=== PATIENT | female | born 1930 | race Caucasian/White ===

== ENCOUNTER 2017-10-11 07:10 | Emergency (ER) | payer OTHER ==
[~2017-10-11] VITALS: Ht 157.5 cm; Wt 77.1 kg
[~2017-10-11 07:10] MED LIST: ADULT LOW DOSE81 MG PO; ALTOPREV20 M1 PO; ALTOPREV20 MG PO; CIPRO500 MG PO; CIPROFLOXACIN500 M3 PO; CLARITIN10 MG PO; DIAZEPAM 2MG TAB2 MG OR; DIAZEPAM 2MG TAB2 MG PO; FLAGYL500 MG PO; LEVAQUIN 500 M500 M1 PO; LEVOTHYROXINE0.05 MG PO; MIRALAX255 GM PO; MOTION RELIEF25 MG PO; MULTIVITAMIN W1 EAC5 PO; MULTIVITAMINS1 EAC7 PO; NORCO 5-325 TA1 EACH PO; OCUVITE PRESER1 EACH; OCUVITE PRESER1 EACH PO; OCUVITE TABLET1 EAC1 PO; PRILOSEC 20 MG20 MG PO; REQUIP 1 MG TABL1 M1 PO; REQUIP XL2 MG PO; RESTORIL15 MG PO; RESTORIL7.5 MG PO; ROPINIROLE HCL2 M1 PO; TEMAZEPAM PO; ULTRAM 50MG TAB50 MG PO; ZESTRIL20 MG PO; ZOFRAN4 MG PO
[2017-10-11] MEDS ORDERED: VALIUM5 MG PO (07:29)
[2017-10-11] MEDS ORDERED: OMEPRAZOLE 20 M20 M1 PO (07:29)
[2017-10-11 07:34] LABS: URINE BILIRUBIN NEGATIVE (Negative); URINE BLOOD 3+ (Negative); URINE CLARITY CLEAR; URINE COLOR YELLOW; URINE GLUCOSE-RANDOM NEGATIVE (Negative); URINE KETONES NEGATIVE (Negative); URINE LEUKOCYTES-REFLEX NEGATIVE (Negative); URINE NITRITE-REFLEX NEGATIVE (Negative); URINE PROTEIN NEGATIVE (Negative); URINE UROBILINOGEN 0.2 E.U./dl (0.2-1.0)
[2017-10-11 07:44] LABS: BACTERIA-REFLEX None Seen /HPF (None Seen); CASTS None Seen /LPF (None Seen); CRYSTALS None Seen /LPF (None Seen); MUCUS None Seen strn/LPF (None Seen); SQUAMOUS 4-10 Moderate /LPF (0-3); URINE RBC 3-10 Few /HPF (0-2); URINE WBC-REFLEX 0-5 Rare /HPF (0-5)
[2017-10-11 07:49] LABS: ABSOLUTE EOSINOPHILS 0.2 thou/uL (0.0-0.7); ABSOLUTE LYMPHOCYTES 1.9 thou/uL (0.8-5.3); ABSOLUTE MONOCYTES 0.7 thou/uL (0.0-1.2); ABSOLUTE NEUTROPHILS 4.7 thou/uL (1.6-8.1); BASOPHILS 0.6 %; EOSINOPHILS 2.4 %; HEMATOCRIT 43.4 % (37.0-47.0); HEMOGLOBIN 14.3 gm/dL (12.0-15.0); LYMPHOCYTES 25.9 %; MCH 32.4 pg (26.0-34.0); MCHC 32.9 g/dL (28.0-37.0); MCV 98.7 fL (80.0-100.0); MONOCYTES 9.1 %; MPV 7.7 fl. (7.2-11.1); NUCLEATED RBCS 0 /100WBC; PLATELET COUNT* 227 thou/uL (150-400); RBC 4.39 mil/uL (4.20-5.00); RDW-CV 13.9 % (10.5-14.5); WBC 7.5 thou/uL (4.0-11.0)
[2017-10-11 07:54] LABS: ANION GAP 6 mmol/L (7-16); BUN 24 mg/dL (7-18); CALCIUM 8.6 mg/dL (8.5-10.1); CHLORIDE 108 mmol/L (98-107); CO2 29 mmol/L (21-32); CREATININE 1.1 mg/dL (0.6-1.3); GLUCOSE 133 mg/dL (70-99); POTASSIUM 4.2 mmol/L (3.5-5.1); SODIUM 143 mmol/L (136-145)
[2017-10-11 07:56] LABS: PROTIME 10.2 Seconds (9.20-11.50)
[2017-10-11 08:01] LABS: ALBUMIN 3.5 g/dL (3.4-5.0); ALKALINE PHOSPHATASE 42 U/L (46-116); LIPASE 220 U/L (73-393); SGOT 23 U/L (15-37); SGPT 33 U/L (30-65); TOTAL BILIRUBIN 0.5 mg/dL (<0.1-1.0); TROPONIN-I LEVEL <0.06 ng/mL (<0.06)
[2017-10-11 09:15] VITALS: BP 127/69
--- NOTE | 2017-10-11 14:46 | EKG ---
[place] [address] ELECTROCARDIOGRAM REPORT Name: MARINMRAQUITA Kinza Room: 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
== END 2017-10-11 09:16 | disposition home or self-care (01) ==
LOC: M.ERS 07:10
PROVIDERS: Family Medicine
DX: R10.84 Generalized abdominal pain (principal); E78.00 Pure hypercholesterolemia, unspecified; K21.9 Gastro-esophageal reflux disease without esophagitis; I10 Essential (primary) hypertension; E78.5 Hyperlipidemia, unspecified; Z98.890 Other specified postprocedural states; Z88.8 Allergy status to other drugs, medicaments and biological substances; Z91.018 Allergy to other foods

== ENCOUNTER 2017-12-26 17:32 | Inpatient (IN) | payer OTHER ==
[~2017-12-26] VITALS: Ht 157.5 cm; Wt 83.1 kg
[~2017-12-26 17:32] MED LIST changes: +OMEPRAZOLE 20 M20 M1 PO; +VALIUM5 MG PO
[2017-12-26 17:42] VITALS: BP 158/70
[2017-12-26 18:03] LABS: URINE BILIRUBIN NEGATIVE (Negative); URINE BLOOD 2+ (Negative); URINE CLARITY CLEAR; URINE COLOR YELLOW; URINE GLUCOSE-RANDOM NEGATIVE (Negative); URINE KETONES NEGATIVE (Negative); URINE LEUKOCYTES-REFLEX NEGATIVE (Negative); URINE NITRITE-REFLEX NEGATIVE (Negative); URINE PROTEIN NEGATIVE (Negative); URINE UROBILINOGEN 0.2 E.U./dl (0.2-1.0)
[2017-12-26 18:17] LABS: ABSOLUTE EOSINOPHILS 0.2 thou/uL (0.0-0.7); ABSOLUTE LYMPHOCYTES 1.5 thou/uL (0.8-5.3); ABSOLUTE MONOCYTES 1.1 thou/uL (0.0-1.2); ABSOLUTE NEUTROPHILS 7.6 thou/uL (1.6-8.1); BASOPHILS 0.5 %; EOSINOPHILS 1.7 %; HEMATOCRIT 37.1 % (37.0-47.0); HEMOGLOBIN 12.7 gm/dL (12.0-15.0); LYMPHOCYTES 14.6 %; MCH 33.3 pg (26.0-34.0); MCHC 34.1 g/dL (28.0-37.0); MCV 97.7 fL (80.0-100.0); MONOCYTES 10.8 %; MPV 7.6 fl. (7.2-11.1); NUCLEATED RBCS 0 /100WBC; PLATELET COUNT* 229 thou/uL (150-400); POLYS 72.4 %; RDW-CV 13.7 % (10.5-14.5); WBC 10.5 thou/uL (4.0-11.0)
[2017-12-26 18:22] LABS: ANION GAP 5 mmol/L (7-16); BUN 12 mg/dL (7-18); CALCIUM 8.4 mg/dL (8.5-10.1); CHLORIDE 102 mmol/L (98-107); CO2 28 mmol/L (21-32); CREATININE 0.9 mg/dL (0.6-1.3); GLUCOSE 108 mg/dL (70-99); POTASSIUM 3.7 mmol/L (3.5-5.1); SODIUM 135 mmol/L (136-145)
[2017-12-26 18:29] LABS: ALBUMIN 3.1 g/dL (3.4-5.0); ALKALINE PHOSPHATASE 45 U/L (46-116); LIPASE 128 U/L (73-393); SGOT 23 U/L (15-37); SGPT 28 U/L (30-65); TOTAL BILIRUBIN 0.6 mg/dL (<0.1-1.0); TROPONIN-I LEVEL <0.06 ng/mL (<0.06)
[2017-12-26 18:33] LABS: SQUAMOUS 0-3 Few /LPF (0-3)
[2017-12-26 18:34] LABS: BACTERIA-REFLEX 1-9 Few /HPF (None Seen); CASTS None Seen /LPF (None Seen); CRYSTALS None Seen /LPF (None Seen); URINE RBC 0-2 Rare /HPF (0-2); URINE WBC-REFLEX 0-5 Rare /HPF (0-5)
[2017-12-26 20:18] VITALS: BP 125/58
[2017-12-26 20:40] VITALS: BP 138/64
[2017-12-26] MEDS ORDERED: ROPINIROLE HCL2 MG PO (20:51)
[2017-12-26] MEDS ORDERED: ROPINIROLE HCL3 MG PO (20:52)
[2017-12-26 21:21] VITALS: BP 138/64
[2017-12-26 21:50] VITALS: BP 119/68
[2017-12-26 22:51] LABS: CHOLESTEROL 148 mg/dL (<200); HDL CHOLESTEROL 46 mg/dL (>40); LDL CHOLESTEROL 90 mg/dL (<100); TC:HDL 3.2 Ratio (Not establshd); TRIGLYCERIDE 60 mg/dL (<150); VLDL 12 mg/dL (<40)
[2017-12-26 22:52] LABS: SERUM ASSESSMENT CLEAR
[2017-12-27] VITALS (23 sets, daily range): BP systolic 57–146; BP diastolic 28–73
[2017-12-27 05:13] LABS: HEMATOCRIT 38.5 % (37.0-47.0); HEMOGLOBIN 12.8 gm/dL (12.0-15.0); MCH 32.9 pg (26.0-34.0); MCHC 33.3 g/dL (28.0-37.0); MCV 98.9 fL (80.0-100.0); MPV 7.6 fl. (7.2-11.1); RBC 3.89 mil/uL (4.20-5.00); RDW-CV 13.8 % (10.5-14.5); WBC 13.7 thou/uL (4.0-11.0)
[2017-12-27 05:28] LABS: CALCIUM 8.1 mg/dL (8.5-10.1); MAGNESIUM 1.7 mg/dL (1.8-2.4); POTASSIUM 3.8 mmol/L (3.5-5.1)
--- NOTE | 2017-12-27 05:49 | NUR ---
RECEIVED REPORT FROM BRIEN JULIAN AT 1957. PT ARRIVED TO UNIT FROM ER AT 2009 VIA CART. IV CARDIZEM INFUSING. 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 CARDIAC CONSULT CALLED. RECEIVED CALL BACK FROM DR. CROUCH. NEW ORDERS RECEIVED AND CARRIED OUT. ALSO SPOKE WITH DR. GIBSON FOR PT C/O COUGHING. NEW ORDERS RECEIVED. AT 0100, PT C/O RIGHT ARM PAIN AND ITCHING ALL OVER. PT STATED SHE FELT LIKE SHE HAD BUGS CRAWLING ALL OVER. IV DOXYCYCLINE STOPPED, DR. GIBSON NOTIFIED AND NEW ORDERS RECEIVED. SEE EMAR FOR DOCUMENTATION. HOURLY ROUNDING COMPLETED.
--- NOTE | 2017-12-27 08:40 | NUR ---
ASSUMED PT. CARE AND RECEIVED REPORT AT 0730. PT A/OX4, VSS, MONITOR ON TRACING AFLUTTER/FIB. PT. DENIES CURRENT PAIN. ON RA @ 94%. PT. REPORTS DRY COUGH. DENIES NAUSEA. DR. CROUCH INTO SEE, OKAY FOR BREAKFAST THIS MORNING. FULL ASSESSMENT COMPLETED, REFER TO CHARTING. CARDIZEM GTT INFUSING AT 20ML/HR, TOLERATING WELL. PT AT BEDSIDE, CALL LIGHT IN REACH, WILL CONTINUE WITH PLAN OF CARE.
--- NOTE | 2017-12-27 09:52 | EKG ---
[place] [address] ELECTROCARDIOGRAM REPORT Name: MARQUITA FUNES Room: [address] ADM IN .R.#: [id number] Admission: 12/26/17 Attend Phys: Pattie Ramos Discharge: Date of : 34 Report #: [id number] THIS REPORT FOR: //name// [facility] ED Test Date: 2017-12-26 Test Time: 18:07:34 Pat Name: MARQUITA FUNES Department: Room: Gender: Camp Assistant: Jazmyne JOHNSON : 1930 Requested By: Kathryn Romero Order Number: [id number] MD: Gabe Da Silva Measurements Intervals [place] Rate: 96 P: 46 HI: 163 QRS: -8 QRSD: 79 T: 29 QT: 341 QTc: 431 Interpretive Statements Sinus rhythm Atrial premature complex Probable left atrial enlargement Compared to ECG 10/11/2017 07:33:46 Atrial premature complex(es) now present Electronically Signed On 12-27-2017 9:52:42 CDT by Gabe Da Silva [email or web address] <ELECTRONICALLY SIGNED> By: Gabe Da Silva MD, [facility] 12/27/17 0952 1807 180 Gabe Da Silva MD, [facility] /EPI
--- NOTE | 2017-12-27 09:54 | EKG ---
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
--- NOTE | 2017-12-27 10:55 | NUR ---
AT APPROX. 1045 PT. CALLED OUT AND REPORT SHE FELT CHEST PRESSURE AND UNABLE TO TAKE DEEP BREATH OR CATCH BREATH. ASSESSMENT COMPLETED INCLUDING VITALS SIGNS AT 127/59, 75, PT. PLACED ON 2L WITH RA O2 SAT. @ 91%, EKG OBTAINED SHOWING AFIB IN THE 70'S. VISUALLY NO CHANGES NOTED FROM PT. PREVIOUS ASSESSMENT. DR. GIBSON ON UNIT, UPDATED ON PT. COMPLAINTS AND SHOWN EKG.
[2017-12-27 11:49] LABS: BE 0 mmol/L (-2 to +3); HCO3 26.8 mmol/L (22.0-26.0); PCO2 VENOUS 52.5 mmHg (41.0-51.0); PO2 VENOUS 56.7 mmHg (35.0-45.0)
[2017-12-27 11:52] LABS: CALCIUM 7.7 mg/dL (8.5-10.1); CREATININE 1.2 mg/dL (0.6-1.3); MAGNESIUM 1.7 mg/dL (1.8-2.4); POTASSIUM 3.7 mmol/L (3.5-5.1)
--- NOTE | 2017-12-27 12:12 | NUR ---
PATIENT TRANSFERED TO ICU BY BED TO ROOM 2 WITH NURSING STAFF. REPORT RECEIVED FROM KAYCE TESFAYE. ALL QUESTIONS ANSWERED. PATIENT RECEIVING FLUIDS AND LEVO GTT, ABLE TO ALREADY START WEANING DOWN. PATIENT MORE ALERT AND APPROPRIATE. BANDAY AT BEDSIDE. PROGRAM PROPOSALS COORDINATOR IN PLACE, CALL LIGHT IN REACH, BED IN LOWEST POSTION.
--- NOTE | 2017-12-27 12:15 | NUR ---
AT APPROX. 1110 DR. GIBSON INTO SEE PT. PT. C/O OF NOT FEELING WELL AGAIN. BLOOD PRESSURE OBTAINED BY FIRST CRUSHER SHOWING 73/39, HEART RATE 68. RAPID RESPONSE TEAM INITIATED. GAVE VERBAL ORDER TO START IVF'S WIDE OPEN X2 BAGS, SOLUMEDROL 125 IV PUSH, AND LEVOPHED GTT AT 15MCGS/HR. PT. PRESSURES REMAINED SOFT DURING EDUCATIONAL INSTITUTION CURATOR. PT. TRANSFERED TO ICU FOR CLOSER MONITORING. REPORT GIVEN TO TENZIN TESFAYE AT BEDSIDE. PT. UPDATED ON CURRENT CONDITION AND PLAN OF CARE.
--- NOTE | 2017-12-27 15:17 | NUR ---
LEVOPHED HAS BEEN OFF SINCE 1300. PATIENT TOLERATING WELL.
--- NOTE | 2017-12-27 15:18 | EKG ---
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
--- NOTE | 2017-12-27 16:16 | 2DMMODE ---
[place] [address] 2 D/M-MODE ECHOCARDIOGRAM Name: MARQUITA FUNES Room: [address] IN [facility]#: [id number] Admission: 12/26/17 Attend Phys: Mackenzie Mars Discharge: Date of : 34 Date of Service: 12/27/17 1615 Report #: [id number] THIS REPORT FOR: //name// APPROVED REPORT Study performed: 12/27/2017 14:10:24 EXAM: Comprehensive 2D, Doppler, and color-flow Echocardiogram Patient Location: In-Patient Room #: [facility] Status: routine BSA: 1.92 HR: 69 bpm BP: 112/56 mmHg Rhythm: NSR Other Information Study Quality: Good Indications Atrial Fibrillation 2D Dimensions LVEF(%): 67.42 (>50%) IVSd: 8.65 (7-11mm) LVOT Diam: 18.33 (18-24mm) LVDd: 42.75 mm PWd: 10.02 (7-11mm) Ascending Ao: 28.51 (22-36mm) LVDs: 26.87 (25-40mm) Aortic Root: 30.05 mm Negro's LVEF: 67.42 % Volumes Left Atrial Volume (Systole) LA ESV Index: 25.60 mL/m2 Aortic Valve AoV Peak Jaime.: 1.78 m/s AO Peak Gr.: 12.74 mmHg LVOT Max P.13 mmHg AO Mean Gr.: 6.86 mmHg LVOT Mean P.37 mmHg LVOT Max V: 1.13 m/s AO V2 VTI: 34.99 cm LVOT Mean V: 0.70 m/s JARRET (VTI): 1.71 cm2 LVOT V1 VTI: 22.72 cm Mitral Valve E/A Ratio: 2.22 [place] [address] 2 D/M-MODE ECHOCARDIOGRAM Name: MARINMARQUITA Room: [address] IN .R.#: [id number] Admission: 12/26/17 Attend Phys: Mackenzie Mars Discharge: Date of : 34 Date of Service: 12/27/17 1615 Report #: [id number] MV Decel. Time: 171.97 ms MV E Max Jaime.: 1.33 m/s MV PHT: 49.87 ms MVA (PHT): 4.41 cm2 TDI E/Lateral E': 10.23 E/Medial E': 8.87 Medial E' Jaime.: 0.15 m/s Lateral E' Jaime.: 0.13 m/s Pulmonary Valve PV Peak Jaime.: 0.94 m/s PV Peak Gr.: 3.57 mmHg Tricuspid Valve TR Peak Gr.: 26.18 mmHg RVSP: 31.00 mmHg Left Ventricle The left ventricle is normal size. There is normal LV segmental wall motion. There is normal left ventricular wall thickness. Left ventricular systolic function is normal. The left ventricular ejection fraction is within the normal range. LVEF is 55-60%. The left ventricular diastolic function is normal. Right Ventricle The right ventricle is normal size. The right ventricular systolic function is normal. Atria The left atrium size is normal. The right atrium size is normal. Aortic Valve Mild aortic valve sclerosis. No aortic regurgitation is present. Mild aortic stenosis. Mitral Valve The mitral valve is normal in structure. Mild mitral annular calcification. Mild mitral regurgitation. No evidence of mitral valve stenosis. Tricuspid Valve The tricuspid valve is normal in structure. Mild tricuspid regurgitation. The RVSP is 30-35 mmHg. Pulmonic Valve The pulmonary valve is normal in structure. [place] [address] 2 D/M-MODE ECHOCARDIOGRAM Name: MARQUITA FUNES Room: [address] IN ..#: [id number] Admission: 12/26/17 Attend Phys: Mackenzie Mars Discharge: Date of : 34 Date of Service: 12/27/17 1615 Report #: [id number] valvular regurgitation. Great Vessels The aortic root is normal in size. IVC is normal in size and collapses with >50% inspiration Pericardium There is no pericardial effusion. <Conclusion> LVEF is 55-60%. Mild aortic stenosis. Mild mitral regurgitation. <ELECTRONICALLY SIGNED> By: Gabe Da Silva MD, FACC 12/27/17 1615 161 14 Gabe Da Silva MD, FACC /INF
--- NOTE | 2017-12-27 17:14 | CON ---
[address] [address] CONSULTATION Name: MARQUITA FUNES Room: [address] ADM IN M.R.#: [id number] Admission: 12/26/17 Attend Phys: Pattie Ramos Discharge: Date of : 34 Report #: [id number] THIS REPORT FOR: //name// CC: Tom Mars INDICATION: Atrial fibrillation, rapid ventricular response. HISTORY OF PRESENT ILLNESS: The patient is a very pleasant, fairly healthy 87-year-old white female with no prior cardiac history who was admitted to the hospital with primary complaints of cough and discomfort with an abdominal hernia. She was noted to be in atrial fibrillation with a rapid ventricular response rate. She reports intermittent palpitations for the last 6 months. She denies chest pain. She has dyspnea on exertion and easy fatigability, but no shortness of breath at rest. She denies chest pain. She has also been having symptoms of an upper respiratory tract infection for the last couple of days with sore throat, mild fever and cough that is nonproductive. She is without other complaint. PAST MEDICAL HISTORY: 1. Hypothyroidism. 2. GERD. 3. Abdominal hernia. 4. Hepatitis B. PAST SURGICAL HISTORY: 1. Partial left mastectomy for breast cancer. 2. Colectomy for diverticulitis. 3. Appendectomy. FAMILY HISTORY: Noncontributory. SOCIAL HISTORY: She is . She does not smoke nor has she ever. She does not drink alcohol. ALLERGIES: IODINE, DOXYCYCLINE, and TOMATOES. HOME MEDICATIONS: Aspirin 81 mg daily, levothyroxine 50 mcg daily, lisinopril 20 mg daily, lovastatin 20 mg at bedtime, multivitamin 1 tablet daily, omeprazole 20 mg daily, and ropinirole 5 mg daily. REVIEW OF SYSTEMS: She reports a cough that is nonproductive. She has palpitation. She has dyspnea on exertion. She has hypothyroidism. She reports chronic hepatitis B that is . She reports recurrent urinary tract infections. She has a history of breast cancer as outlined above. She reports mild anxiety and depression since she lost her [place] [address] CONSULTATION Name: MARQUITA FUNES Room: [address] IN [facility]#: [id number] Admission: 12/26/17 Attend Phys: Pattie Ramos Discharge: Date of : 34 Report #: [id number]. 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 Otherwise, 14-point review of systems was unremarkable. PHYSICAL EXAMINATION: VITAL SIGNS: Stable. Blood pressure is 112/56, pulse currently in the 80s and irregular. GENERAL: This is a very pleasant elderly female, in no distress. Mood and affect appropriate. HEENT: The patient is wearing glasses. Extraocular muscles are intact. Mucous membranes are moist. NECK: Examination of the neck shows no jugular venous distention. CHEST: Reveals clear lung faye. I do not appreciate wheezes or rales. CARDIAC: Reveals an irregularly irregular rhythm without gallop or murmur. ABDOMEN: Reveals normal bowel sounds. The abdomen is soft and nontender. EXTREMITIES: Show no edema. SKIN: Warm and dry. A 12-lead EKG shows atrial fibrillation with a rapid ventricular response rate. Inferior Q-waves noted. No acute ST abnormalities noted. LABS: Reviewed. Electrolytes within normal limits. BUN 12, creatinine 1.0. Serum glucose 128. LFTs within normal limits. Troponin less than 0.06 on 2 separate occasions. Lipid profile shows total cholesterol 148, triglycerides 60, HDL 46, LDL 90. Coags are normal. White blood cell count 13.7, hemoglobin 12.8, platelet count 247,000. Portable chest x-ray, no acute cardiopulmonary process. IMPRESSION AND RECOMMENDATIONS: 1. Paroxysmal atrial fibrillation with rapid ventricular response. We will start sotalol and Eliquis at this point in time. We will obtain echocardiogram for further evaluation. 2. Hyperlipidemia, presently fairly well controlled on current dose lovastatin, we will continue as outlined above. 3. Gastroesophageal reflux disease. Continue omeprazole daily. 4. Hypothyroidism, on thyroid replacement at this time. <ELECTRONICALLY SIGNED> By: Paulino Spence MD, FACC 12/27/17 1714 0835 1239Micfidencio Spence MD, FACC /nt
[2017-12-28] VITALS (12 sets, daily range): BP systolic 113–150; BP diastolic 52–77
[2017-12-28 02:11] LABS: GLYCOHEMOGLOBIN (HGB A1C) 5.9 % (4.8-5.6)
--- NOTE | 2017-12-28 07:28 | NUR ---
PROGRESSING TOWARDS GOALS, ALERT, ALERT AND CONVERSATIVE THIS AM, REMAINS ON OXYGEN 2L PER NC, SA02 =>96%, CONGESTED CONTINUOUS INTERMITTENT COUGH, C/O ABDOMINAL PAIN WHILE ACTIVILY COUGHING THAT RESOLVES IMMEDIATLY COUGHING STOPPED, REQUESTING COUGH SUPPRESSENT, NEW ORDER RECEIVED DR MINAYA FOR ROBITUSSION AC, ROBITUSSION GIVEN PER ORDER, NO HYPOTENSION DURING NOC, RESTING QUIELTY WITH EYES CLOSED OFF AND ON DURING NOC, UP TO BSC TO VOID WITH X1 ASSIST SLOW STEADY GAIT, AFEBRILE, DAUGHTER HERE AT HS, COMMUNICATED POC WITH DAUGHTER AND PT, BED REMAINS IN LOW AND LOCKED POSITION, HOURLY ROUNDING DONE PER POLICY.
[2017-12-28 09:34] LABS: CREATININE 1.1 mg/dL (0.6-1.3); POTASSIUM 4.1 mmol/L (3.5-5.1)
[2017-12-28 09:39] LABS: HEMATOCRIT 37.1 % (37.0-47.0); HEMOGLOBIN 12.3 gm/dL (12.0-15.0); MCH 32.7 pg (26.0-34.0); MCHC 33.1 g/dL (28.0-37.0); MCV 98.8 fL (80.0-100.0); MPV 7.8 fl. (7.2-11.1); NUCLEATED RBCS 0 /100WBC; PLATELET COUNT* 235 thou/uL (150-400); RBC 3.75 mil/uL (4.20-5.00); RDW-CV 13.6 % (10.5-14.5); WBC 16.5 thou/uL (4.0-11.0)
[2017-12-28 10:10] LABS: ABSOLUTE MONOCYTES 0.8 thou/uL (0.0-1.2); ABSOLUTE NEUTROPHILS 14.7 thou/uL (1.6-8.1); PLATELET ESTIMATE ADEQUATE
--- NOTE | 2017-12-28 10:14 | NUR ---
PATIENT IS M/S TELE STATUS.
--- NOTE | 2017-12-28 10:32 | NUR ---
CHART REVIEWED, SPOKE WITH PT. PT AND LIVE IN THEIR OWN APT IN THEIR DTR'S HOUSE. PT SAID SHE IS INDEP AT HOME, ABLE TO BATHE AND DRESS HERSELF, ABLE TO COOK. PT HAS LIMITED VISION BUT SAYS SHE MANAGES FINE. DTR IS GONE DURING THE DAY AT WORK. BUT CALLS TO CHECK ON THEM. PT, , AND DTR DENY ANY DISCHARGE NEEDS, PT IS HOPING SHE CAN GO HOME SOON.
--- NOTE | 2017-12-28 14:44 | NUR ---
PATIENT TRANSFERED TO ROOM 209. PATIENT RESTING IN BED REPORTING NO PAIN, NAUSEA OR INCREASED SHORTNESS OF BREATH. IV SALINE LOCKED AND ON 2 LITERS VIA NASAL CANNULA. WILL CONTINUE TO MONITOR THIS SHIFT.
--- NOTE | 2017-12-28 16:15 | EKG ---
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: : 1930 Requested By: Paulino Spence Order Number: [id number] Lea MD: Gabe Da Silva Measurements Intervals [place] Rate: 76 P: 55 MN: 165 QRS: -2 QRSD: 84 T: 30 QT: 420 QTc: 473 Interpretive Statements Sinus rhythm Atrial premature complexes Compared to ECG 12/27/2017 10:49:41 Atrial fibrillation no longer present Electronically Signed On 12-28-2017 16:15:41 CDT by Gabe Da Silva [email or web address] <ELECTRONICALLY SIGNED> By: Gabe Da Silva MD, [facility] 12/28/17 1615 15 15 Gabe Da Silva MD, [facility] /EPI
[2017-12-29] VITALS: BP 122/68
[2017-12-29 04:00] VITALS: BP 112/66
[2017-12-29 04:53] LABS: HEMATOCRIT 36.5 % (37.0-47.0); MCH 32.4 pg (26.0-34.0); MCHC 32.8 g/dL (28.0-37.0); MCV 98.8 fL (80.0-100.0); MPV 8.3 fl. (7.2-11.1); NUCLEATED RBCS 0 /100WBC; PLATELET COUNT* 257 thou/uL (150-400); RDW-CV 13.8 % (10.5-14.5); WBC 20.2 thou/uL (4.0-11.0)
[2017-12-29 05:36] LABS: CALCIUM 8.6 mg/dL (8.5-10.1); CREATININE 1.1 mg/dL (0.6-1.3); MAGNESIUM 2.3 mg/dL (1.8-2.4); POTASSIUM 4.1 mmol/L (3.5-5.1)
--- NOTE | 2017-12-29 05:53 | NUR ---
A&O X4 CALM COOPERITVE. SR ON THE MONITOR. STAND BY ASSIST, PT LEGALLY BLIND. 2L O2 NC. DENIES PAIN. VITALS WNL. SEE MAR. SEE CHARTING. FALL PRECAUTIONS IN PLACE. HOURLY ROUNDING FOR SAFETY.
[2017-12-29 06:21] LABS: ABSOLUTE LYMPHOCYTES 1.8 thou/uL (0.8-5.3); ABSOLUTE MONOCYTES 0.2 thou/uL (0.0-1.2); ABSOLUTE NEUTROPHILS 18.2 thou/uL (1.6-8.1); PLATELET ESTIMATE ADEQUATE
[2017-12-29 08:00] VITALS: BP 114/56
--- NOTE | 2017-12-29 08:22 | CON ---
[address] [address] CONSULTATION Name: MARQUITA FUNES Room: [address] IN M.R.#: [id number] Admission: 12/26/17 Attend Phys: Pattie Ramos Discharge: Date of : 34 Report #: [id number] THIS REPORT FOR: //name// CC: Tom Mars REQUESTING PHYSICIAN: Dr. Mars. REASON FOR CONSULTATION: Cough. DISCUSSION: The patient is a pleasant 87-year-old woman who is a lifelong nonsmoker. She has no prior history of known pulmonary disease. She was admitted after presenting to the Emergency Department yesterday with increasing shortness of breath occurring primarily when she exerts herself along with palpitations. She was found to have atrial fibrillation with a rapid ventricular response. A chest x-ray was unremarkable. She was started on medications to help control her heart rate. This morning, she felt quite poorly. She was noted to be hypotensive and had some relative bradycardia. She was given some fluids and was on Levophed for a short period of time. The hypotension did necessitate a transfer to the Intensive Care Unit where I saw her. I was asked to see her in regards to a cough. She actually relates two different coughs. One is her "chronic cough," which she has had for at least 4 years if not longer. Typically coughs fairly hard first thing in the morning. May cough so hard that she has some "dry heaves." She notes she does try to get herself to vomit, but is usually not successful. Frequently it will occur after her morning meal. May have other episodes during the day as well. The only thing she has tried for it is sekp-fpv-jyvkhik Tussin cough syrup. She also notes about a week ago, she developed a different cough. It has also been nonproductive. It is recurrent throughout the day. She is coughing so hard her throat is sore. She is also concerned that she has an abdominal hernia and that could exacerbate it. She has not had any fevers at home that she is aware of. She has had the sore throat from the severe cough. No sputum production. No actual chest pain. She does note she has been intermittently wheezing and some of that actually goes back further than this week. She has not been exposed to anyone who is ill that she is aware of. Because of macular degeneration and marked decrease in visual acuity, she typically does not get out of her home much. She denies any indigestion or heartburn or difficulty swallowing. However, she was supposed to be on a PPI at home, but then admitted she has actually stopped that several months ago, if not longer. She has been on lisinopril for a long time. She is a nonsmoker as noted. No significant secondhand smoke exposure. No history of TB or thromboembolic disease. No family history of lung disease. Other than zhvh-wff-oikikxq Tussin, she has not had any other medications or any evaluation done for the cough that she can recall. Here in the hospital, [place] [address] CONSULTATION Name: MARQUITA FUNES Room: [address] IN .R.#: [id number] Admission: 12/26/17 Attend Phys: Pattie Ramos Discharge: Date of : 32 Report #: [id number] has been placed on budesonide via the nebulizer. Not on any other bronchodilators. She and her live with her daughter. Her daughter does have three dogs. The patient typically does not have much physical contact with them. They are kept in separate part of the house. PAST MEDICAL HISTORY: Also remarkable for breast cancer. She had a partial mastectomy about 20 years ago, which was followed by radiation therapy. She declined chemotherapy. She does not follow with an oncologist at this time. She has had a prior appendectomy, prior notes indicate that she has GERD, chronic constipation, restless leg syndrome, hypertension, dyslipidemia and diverticulosis. She did require a sigmoid resection for diverticulitis in 2008. 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 HOME MEDICATIONS: Lovastatin, levothyroxine, multivitamins, aspirin, lisinopril 20 mg daily and ropinirole daily. She still lists omeprazole on her home medication sheet; however, she does admit she has not taken it for the last several months. SOCIAL HISTORY: Nonsmoker. She is . 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 FAMILY HISTORY: Negative for lung disease. REVIEW OF SYSTEMS: A 12-point ROS was done. Note positives above. She complains of a sore throat with her cough. No difficulty swallowing. She does feel a little hoarse over the last several days given her increased cough. No sputum production. She is not aware of any fevers. She does note she has had sweats for years. No increased lower extremity edema. Intermittently may have some abdominal discomfort. No syncopal episodes. However, she did become quite hypotensive today, which necessitated a transfer to the ICU when she was hypotensive. She did feel like she was close to blacking out and she admits that she thought she was going to . PHYSICAL EXAMINATION: GENERAL APPEARANCE: An obese woman. She is alert, cooperative, in no acute distress. HEENT: Head is normocephalic and atraumatic. Sclerae are nonicteric. She does have dentures. Posterior pharynx is just minimally red. No ulcerations are noted. No thrush. NECK: Large, but supple without adenopathy. No JVD is noted. HEART: Regular rate. She does appear to be in normal sinus rhythm. No S3 is heard. LUNGS: Reveal breath sounds to be fairly clear. Few faint rhonchi. There is some improvement with the cough. No wheezing. She does have a slight [facility] [address] [facility], [place] [address] CONSULTATION Name: MARQUITA FUNES Room: [address] IN [facility]#: [id number] Admission: 12/26/17 Attend Phys: Pattie Ramos Discharge: Date of : 32 Report #: [id number] prolongation of expiratory phase. ABDOMEN: Obese and relatively soft. Hernia is palpable. No definite hepatosplenomegaly is noted. Healed surgical scars. EXTREMITIES: She has no clubbing. Lower extremities are negative for edema. SKIN: Warm and dry. NEUROLOGIC: She is alert and oriented x 3. LABORATORY AND X-RAY FINDINGS: Chest x-ray done yesterday on admission was negative for any acute findings. On her chemistry, BUN is 13, creatinine of 1.2, potassium 3.7, magnesium 1.7. Transaminases normal. ProBNP yesterday was 538. Troponin is unremarkable. Her white blood cell count today is 13,700, hemoglobin 12.8, hematocrit 38.5 and platelets are normal. Urine did show a small amount of blood, a few white blood cell clumps and few bacteria. IMPRESSION: 1. The patient notes she has actually two separate coughs. One is chronic, which she has had for at least 4 years. It may be associated with some intermittent wheezing and shortness of breath. I suspect this could represent some adult-onset asthma. May also be related to reflux though she denies heartburn and indigestion, old notes in the computer indicate that she carried a diagnosis of GERD. She could be silently refluxing and aspirating. She has also been on lisinopril for a long time. Some of this could be an RAMBO induced cough. May also have some underlying asthma. 2. Acute cough. She became ill about a week ago. Not associated with any fever. However, she notes there was a change in her cough. It has been more frequent, harsher and remains nonproductive. With the clear chest x-ray may have a viral respiratory tract infection such as bronchitis. 3. Possible asthma. 4. Atrial fibrillation with rapid ventricular response. She is doing better at this time. Appears to be in normal sinus rhythm. Anticoagulation therapy has been started. 5. Consider stopping the lisinopril. 6. Continue with her daily PPI. 7. While she is here in the hospital, we will start montelukast 10 mg a day. Also neb treatments with Xopenex every 8 hours. 8. Consider full pulmonary function studies when she is over this acute event. 9. At this point, I have held on any steroids. Could consider short course of IV steroids depending on her cough and wheezing. <ELECTRONICALLY SIGNED> By: Soheila Conte MD 12/29/17 0822 1523 [id number] Conte MD /nt
[2017-12-29 11:56] VITALS: BP 158/68
--- NOTE | 2017-12-29 12:06 | NUR ---
MET WITH PT RE: MEDICATION EDUCATION. PRIMARY DISCUSSION REGARDED SOTALOL. PT'S FRIEND PRESENT DURING DISCUSSION. DISCUSSED RATIONALE FOR THERAPY AND IMPORTANCE OF COMPLIANCE WITH REGIMEN. REVIEWED POSSIBLE SIDE EFFECTS. PT EXPRESSED UNDERSTANDING OF ITEMS DISCUSSED. LEFT WRITTEN MATERIALS WITH PT. PT HAS VISION IMPAIRMENT & STATES SHE WILL GIVE INFORMATION TO HER DAUGHTER. INCLUDED PHARMACY CONTACT INFORMATION FOR ANY FURTHER QUESTIONS OR ISSUES. THANK YOU.
--- NOTE | 2017-12-29 17:29 | NUR ---
RECEIVED REPORT FROM LESVIA TESFAYE. ASSUMED CARE OF PT AROUND 0730. PT A&O X4. VSS. O2 SAT 94% ON 2L PER NC. 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 AM ASSESSMENT AND VITALS COMPLETED CHARTED. PT HAS DENIED PAIN OR DISCOMFORT THIS SHIFT. PT COMPLETED PART 1 OF HER STRESS TEST TODAY. PT TO COMPLETE PART 2 TOMORROW. PT EATING AND DRINKING WITHOUT ISSUE. PT UP TO BATHROOM TO VOID WITH STANDBY ASSISTANCE - VOIDING WITHOUT ISSUE. FAMILY AT BEDSIDE MOST OF SHIFT. IV INTACT AND SALINE LOCKED. PT CURRENTLY SITTING UP IN BED EATING DINNER. FALL PRECAUTIONS ARE IN PLACE. HOURLY ROUNDING PERFORMED. CALL LIGHT IS WITHIN REACH. WCTM FOR DURATION OF SHIFT.
[2017-12-29 19:50] VITALS: BP 134/73
[2017-12-30] VITALS: BP 123/49
[2017-12-30 04:00] VITALS: BP 105/73
--- NOTE | 2017-12-30 05:09 | NUR ---
END SHIFT: PT RESTED WELL. COUGH CONTROLLED WELL WITH COUGH SYRUP, AND NO PAIN NOTED. SR ON MONITOR. ASSESSMENT UNCHANGED. VSS. SAFETY PRECAUTIONS IN PLACE. CALL LIGHT IN REACH. AWAITING 2ND PART OF STRESS TEST TODAY. WILL CONT TO MONITOR
[2017-12-30 08:00] VITALS: BP 148/79
[2017-12-30 11:58] VITALS: BP 140/71
[2017-12-30 16:21] VITALS: BP 133/65
--- NOTE | 2017-12-30 16:45 | CARDNUC ---
[place] [address] CARDIAC NUCLEAR IMAGING REPORT Name: MARQUITA FUNES Room: [address] IN [facility]#: [id number] Admission: 12/26/17 Attend Phys: Mackenzie Mars Discharge: Date of : 32 Date of Service: 12/30/17 1645 Report #: [id number] THIS REPORT FOR: //name// APPROVED REPORT Study performed: 12/28/2017 12:43:00 Indication: Atrial Fibrillation Patient Location: In-Patient Room #: 209 Stress Tech: Tess Green Stress Nurse: Yudith Olvera RN NM Tech:KAT Peralta Ht: 5 ft 2 in Wt: 203 lbs BSA: 1.92 m2 BMI: 37.12 Medical History Medical History: dyspnea, hyperlipidemia, hypertension Medications: aspirin, lisinopril, lovastatin Allergies: iodine, doxycycline Cardiac Risk Factors: age, hyperlipidemia, hypertension Previous Cardiac Procedures: none Exercise History: Sedentary Resting Data Rest SPECT myocardial perfusion imaging was performed in supine position 30 minutes following the intravenous injection of 40.5 mCi of Tc-99m Sestamibi. Time of rest injection: 944 Date: 12/30/2017 Time of rest imagin The images were gated to evaluate regional wall motion and calculate left ventricular ejection fraction. Administration Route: IV Pharmacologic Stress Pharmacologic stress test was performed by injecting Regadenoson 0.4 mg IV push over 10-15 seconds immediately followed by the intravenous injection of 37.7 mCi of Tc-99m Sestamibi. Time of stress injection: 15:00 Administration Route: IV Administration Site: Right Wrist Heart Rate at time of stress injection: 85 bpm. Gated Stress SPECT was performed 40 [place] [address] CARDIAC NUCLEAR IMAGING REPORT Name: MARQUITA FUNES Room: [address] IN ..#: [id number] Admission: 12/26/17 Attend Phys: Mackenzie Mars Discharge: Date of : 32 Date of Service: 12/30/17 1645 Report #: [id number] The images were gated to evaluate regional wall motion and calculate left ventricular ejection fraction. Prone imaging was performed. Stress Test Details Stress Test: Pharmacologic stress testing performed using 0.4 mg of regadenoson per 5 mL given IV over 10 seconds. Reason for pharmacologic stress test: physical limitation. HR Resting HR: 69 bpm Max Heart Rate (APMHR): 135 bpm Max HR Achieved: 85 bpm Target HR (85% APMHR): 114 bpm % of APMHR: 62 Recovery HR: 88 bpm BP Resting BP: 120/72 mmHg Max BP: 115/48 mmHg ECG Resting ECG: Sinus Rhythm, normal EKG Stress ECG: Sinus Rhythm, normal EKG ST Change: None Arrhythmia: None Recovery ECG: Sinus Rhythm, normal EKG Recovery ST Change: None Recovery Arrhythmia: None Clinical Reason for Termination: Completed protocol Exercise duration: 0 min sec Exercise capacity: 1 METs The patient had no chest pain with Lexiscan infusion. Stress ECG Conclusion The baseline 12-lead electrocardiogram showed sinus rhythm without significant ST or T wave abnormality. EKGs obtained during and post Lexiscan infusion show sinus rhythm with no significant ST or T wave changes when compared baseline. There were no stress-induced arrhythmias. Study Quality Study: Good Artifact: [place] [address] CARDIAC NUCLEAR IMAGING REPORT Name: MARQUITA FUNES Kinza Room: [address]#: [id number] Admission: 12/26/17 Attend Phys: Mackenzie Mars Discharge: Date of : 32 Date of Service: 12/30/17 1645 Report #: [id number] At rest, the left ventricular ejection fraction was 65%.. Post stress, the left ventricular ejection was 69%.. TID = 0.77. Perfusion Normal left ventricular perfusion. Wall Motion Normal left ventricular wall motion. Nuclear Conclusion ECG Findings: negative for ischemia Clinical Findings: negative for ischemia Nuclear Findings: negative for ischemia Exercise Capacity: not assessed Left Ventricular Function: normal Risk Study: low Myocardial perfusion images show no defect to suggest infarct or ischemia. Left ventricular systolic function is normal on gated studies. This is a low risk study. <Conclusion> The baseline 12-lead electrocardiogram showed sinus rhythm without significant ST or T wave abnormality. EKGs obtained during and post Lexiscan infusion show sinus rhythm with no significant ST or T wave changes when compared baseline. There were no stress-induced arrhythmias. <ELECTRONICALLY SIGNED> By: Paulino Spence MD, [facility] 12/30/17 1645 164 1645 Paulino Spence MD, FACC /INF
--- NOTE | 2017-12-30 18:40 | NUR ---
RECEIVED REPORT FROM MACIEJ TESFAYE. ASSUMED CARE PF PT AROUND 729. PT A&O X4. VSS. O2 SAT 96% ON RA. 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 AM ASSESSMENT AND VITALS COMPLETED CHARTED. IV TO RIGHT WRIST INTACT AND SALINE LOCKED. PT HAS DENIED PAIN OR DISCOMFORT THROUGHOUT THE SHIFT. PT COMPLETED SECOND PART OF STRESS TEST TODAY - DR CROUCH CALLED WITH RESULT, ALL NORMAL. CARDIOLOGY, AND P.T. HAVE SIGNED OFF. CARDIOLOGY F/U'S IN THE CHART. ELIQUIS SAMPLES GIVEN TO PT. PT CONTINUES TO HAVE NON-PRODUCTIVE COUGH. PT HOPING TO GO HOME TOMORROW. PT EATING AND DRINKING WITHOUT ISSUE. PT VOIDING WITHOUT ISSUE. PT STATES SHE HAS NOT HAD A BM SINCE TUESDAY BUT REFUSES A LAXATIVE. PT VISITED BY FAMILY THIS AFTERNOON. PT CURRENTLY RESTING IN BED. LOW FALL RISK PRECAUTIONS IN PLACE. CALL LIGHT IS WITHIN REACH. HOURLY ROUNDING PERFORMED. WCTM FOR DURATION OF SHIFT.
[2017-12-31] VITALS: BP 129/61
[2017-12-31 04:00] VITALS: BP 147/69
--- NOTE | 2017-12-31 07:09 | NUR ---
PATIENT RESTING MOST OF NIGHT. UP AD LISA. STEADY GAIT. POSSIBLE HOME TODAY. DENIES SOA, PAIN OR DISCOMFORT.
--- NOTE | 2017-12-31 07:25 | NUR ---
CHANGE OF SHIFT BEDSIDE REPOER GIVEN PATIENT SEEN IN ROOM UP IN CHAIR NO REQUESTS MADE AT THIS TIME ASSUMED PATIENT CARE
[2017-12-31 08:00] VITALS: BP 141/75
[2017-12-31 12:00] VITALS: BP 107/67
[2017-12-31] MEDS ORDERED: ELIQUIS5 MG PO (13:28)
[2017-12-31] MEDS ORDERED: SORINE 80 MG TA80 M1 PO (13:36)
[2017-12-31] MEDS ORDERED: PREDNISONE 20 M20 MG PO (13:40)
[2017-12-31] MEDS ORDERED: PULMICORT0.5 MG/22 INH (13:46)
[2017-12-31] MEDS ORDERED: LEVALBUTER1.25 MG/0. INH (13:48)
[2017-12-31] MEDS ORDERED: ROBITUSSIN100 MG/53 PO (13:52)
[2017-12-31] MEDS ORDERED: CEPACOL SORE T1 EAC7 MM (13:57)
--- NOTE | 2017-12-31 15:08 | NUR ---
PATIENT DCD TO HOME DC INSTRUCTIONS GIVEN AND ACKNOWLEDGED AND SIGNED COPIES GIVEN IV AND HEART MONITOR REMOVED PERSONAL BELONGINGS RETURNED ASSISTED OUT VIA WC GOOD CONDITION TO WAITING CAR
== END 2017-12-31 15:11 | disposition home or self-care (01) | DRG 291 ==
LOC: M.ERS 17:32 → M.ICU 19:19 → M.2W 19:19 → M.TBA-ER 19:19 → M.2W 20:00 → M.ICU 12-27 11:38 → M.2W 12-28 14:44
PROVIDERS: Internal Medicine Critical Care Medicine; Nurse Practitioner Family; ADMIT Internal Medicine
DX: I11.0 Hypertensive heart disease with heart failure (principal); J96.01 Acute respiratory failure with hypoxia; R65.11 Systemic inflammatory response syndrome (SIRS) of non-infectious origin with acute organ dysfunction; B19.10 Unspecified viral hepatitis B without hepatic coma; J98.11 Atelectasis; I50.21 Acute systolic (congestive) heart failure; E03.9 Hypothyroidism, unspecified; J20.9 Acute bronchitis, unspecified; I95.9 Hypotension, unspecified; G47.33 Obstructive sleep apnea (adult) (pediatric); I48.0 Paroxysmal atrial fibrillation; G25.81 Restless legs syndrome; K57.90 Diverticulosis of intestine, part unspecified, without perforation or abscess without bleeding; H35.30 Unspecified macular degeneration; E78.5 Hyperlipidemia, unspecified; K21.9 Gastro-esophageal reflux disease without esophagitis; T44.5X5A Adverse effect of predominantly beta-adrenoreceptor agonists, initial encounter; Y92.89 Other specified places as the place of occurrence of the external cause; Z85.3 Personal history of malignant neoplasm of breast; Z90.12 Acquired absence of left breast and nipple; Z90.49 Acquired absence of other specified parts of digestive tract; Z79.82 Long term (current) use of aspirin; Z79.899 Other long term (current) drug therapy; Z91.041 Radiographic dye allergy status; Z88.8 Allergy status to other drugs, medicaments and biological substances; Z91.018 Allergy to other foods

== ENCOUNTER 2019-01-19 03:55 | Inpatient (IN) | payer OTHER ==
[2019-01-19] VITALS (10 sets, daily range): BP systolic 118–135; BP diastolic 51–80
[~2019-01-19] VITALS: Ht 157.5 cm; Wt 84.8 kg
[~2019-01-19 03:55] MED LIST changes: +CEPACOL SORE T1 EAC7 MM; +ELIQUIS5 MG PO; +LEVALBUTER1.25 MG/0. INH; +PREDNISONE 20 M20 MG PO; +PULMICORT0.5 MG/22 INH; +ROBITUSSIN100 MG/53 PO; +ROPINIROLE HCL2 MG PO; +ROPINIROLE HCL3 MG PO; +SORINE 80 MG TA80 M1 PO
[2019-01-19 04:23] LABS: HEMATOCRIT 42.8 % (37.0-47.0); HEMOGLOBIN 13.9 gm/dL (12.0-15.0); MCH 32.1 pg (26.0-34.0); MCHC 32.6 g/dL (28.0-37.0); MCV 98.5 fL (80.0-100.0); MPV 7.6 fl. (7.2-11.1); RBC 4.34 mil/uL (4.20-5.00); RDW-CV 14.4 % (10.5-14.5); WBC 8.6 thou/uL (4.0-11.0)
[2019-01-19 04:31] LABS: ANION GAP 8 mmol/L (7-16); BUN 21 mg/dL (7-18); CALCIUM 8.9 mg/dL (8.5-10.1); CHLORIDE 106 mmol/L (98-107); CO2 31 mmol/L (21-32); CREATININE 1.1 mg/dL (0.6-1.3); GLUCOSE 122 mg/dL (70-99); POTASSIUM 4.6 mmol/L (3.5-5.1); SODIUM 145 mmol/L (136-145)
[2019-01-19 04:39] LABS: ALBUMIN 3.4 g/dL (3.4-5.0); ALKALINE PHOSPHATASE 53 U/L (46-116); SGOT 20 U/L (15-37); SGPT 26 U/L (30-65); TOTAL BILIRUBIN 0.4 mg/dL (<0.1-1.0); TOTAL PROTEIN 6.9 g/dL (6.4-8.2); TROPONIN-I LEVEL <0.06 ng/mL (<0.06)
[2019-01-19] MEDS ORDERED: METFORMIN HCL500 MG PO (05:15)
[2019-01-20] VITALS (23 sets, daily range): BP systolic 112–160; BP diastolic 57–123
[2019-01-20 04:28] LABS: HEMATOCRIT 41.9 % (37.0-47.0); HEMOGLOBIN 13.8 gm/dL (12.0-15.0); MCH 32.5 pg (26.0-34.0); MCHC 32.9 g/dL (28.0-37.0); MCV 98.5 fL (80.0-100.0); MPV 7.9 fl. (7.2-11.1); RBC 4.25 mil/uL (4.20-5.00); RDW-CV 14.5 % (10.5-14.5); WBC 6.3 thou/uL (4.0-11.0)
[2019-01-20 04:38] LABS: ANION GAP 10 mmol/L (7-16); BUN 16 mg/dL (7-18); CALCIUM 8.6 mg/dL (8.5-10.1); CHLORIDE 107 mmol/L (98-107); CO2 26 mmol/L (21-32); CREATININE 0.9 mg/dL (0.6-1.3); GLUCOSE 108 mg/dL (70-99); POTASSIUM 4.1 mmol/L (3.5-5.1); SODIUM 143 mmol/L (136-145)
[2019-01-20 05:01] LABS: CHOLESTEROL 162 mg/dL (<200); HDL CHOLESTEROL 41 mg/dL (>40); LDL CHOLESTEROL 99 mg/dL (<100); TRIGLYCERIDE 110 mg/dL (<150); VLDL 22 mg/dL (<40)
[2019-01-20 05:03] LABS: SERUM ASSESSMENT Clear
--- NOTE | 2019-01-20 10:58 | CON ---
[address] [address] CONSULTATION Name: MARQUITA FUNES Room: [address] IN M.R.#: [id number] Admission: 01/19/19 Attend Phys: Alvarez Rose MD Discharge: Date of : 32 Report #: [id number] THIS REPORT FOR: //name// CC: [facility]varez [facility]ena [facility] DATE OF SERVICE: 01/19/2019 NEUROLOGY CONSULT HISTORY OF PRESENT ILLNESS: The patient is an 88-year-old female who yesterday noticed paresthesias of the right hand. This went from the fingers to the elbow. By this morning, the symptoms have completely resolved. The patient when she presented to [facility], had a neuro tele consult performed. The t-PA was not recommended. The patient at that moment was in atrial fibrillation with a rapid ventricular response. She is now on a Cardizem drip. PAST MEDICAL HISTORY: Restless legs, diabetes mellitus, hypothyroidism, hyperlipidemia, hypertension, gastroesophageal reflux, macular degeneration, breast cancer, diverticulitis. PAST SURGICAL HISTORY: Appendectomy, colon resection, left mastectomy. MEDICATIONS: At home, ropinirole 2 mg at noon and 3 mg at bedtime, metformin 500 mg b.i.d., sotalol 40 mg b.i.d., aspirin 81 mg daily, levothyroxine 50 mcg daily, lovastatin 20 mg at bedtime. ALLERGIES: DOXYCYCLINE, IODINE AND TOMATOES. VITAL SIGNS: Temperature is 36.7, pulse rate 92, respiratory rate 14, blood pressure 118/51. LABORATORY DATA: Hematology: White blood cell count 8.6, hemoglobin 13.9, hematocrit 42.8. Chemistry: Sodium 145, potassium 4.6, chloride 106, carbon dioxide 31, BUN 21, creatinine 1.1, glucose 122. NEUROLOGIC: Cranial nerves 2-12 are grossly intact. Motor exam demonstrates symmetrical strength in all 4 extremities with tone and bulk normal. Reflexes are trace throughout. Plantar responses are flexor. Coordination reveals intact [id number]-bp-gbgl. Tinel sign is negative over the right median nerve at the wrist. IMPRESSION: This patient may have had a transient ischemic attack since she was in atrial fibrillation with a rapid ventricular response. [place] [address] CONSULTATION Name: MARINMARQUITA Echols Room: [address]#: [id number] Admission: 01/19/19 Attend Phys: Alvarez Rose MD Discharge: Date of : 32 Report #: [id number] scheduled for an MRI/MRA of the head and echocardiogram. PT/OT and Speech Therapy have also been ordered for her. She has been changed from an 81 mg aspirin to 325 mg daily. We are now waiting for the workup to be completed. Beyond control of the atrial fibrillation, I have no further recommendations until the imaging studies have been reviewed. I thank you for your kind referral of the patient and we will continue to follow her. <ELECTRONICALLY SIGNED> By: Lilli Denton DO 01/20/19 1058 1041 1301Rdonnie Denton DO /nt
[2019-01-21] VITALS (13 sets, daily range): BP systolic 116–157; BP diastolic 56–118
[2019-01-21 03:08] LABS: GLYCOHEMOGLOBIN (HGB A1C) 6.1 % (4.8-5.6)
[2019-01-22] VITALS (42 sets, daily range): BP systolic 114–183; BP diastolic 64–116
[2019-01-22 03:48] LABS: HEMATOCRIT 43.9 % (37.0-47.0); HEMOGLOBIN 14.6 gm/dL (12.0-15.0); MCH 32.5 pg (26.0-34.0); MCHC 33.2 g/dL (28.0-37.0); MPV 7.9 fl. (7.2-11.1); RBC 4.49 mil/uL (4.20-5.00); RDW-CV 13.9 % (10.5-14.5); WBC 7.8 thou/uL (4.0-11.0)
[2019-01-22 03:56] LABS: CALCIUM 8.8 mg/dL (8.5-10.1); CREATININE 1.1 mg/dL (0.6-1.3); POTASSIUM 4.1 mmol/L (3.5-5.1)
[2019-01-22 03:59] LABS: APTT 28.9 Seconds (25.0-31.3); PROTIME 10.1 Seconds (9.20-11.50)
--- NOTE | 2019-01-22 15:07 | EKG ---
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: : 1930 Requested By: Gabe Da Silva Order Number: [id number] Lea MD: Kyree Castaneda Measurements Intervals [place] Rate: 110 P: WI: QRS: -23 QRSD: 116 T: 34 QT: 354 QTc: 480 Interpretive Statements Atrial flutter Probable left ventricular hypertrophy Compared to ECG 12/28/2017 13:16:45 Sinus rhythm no longer present Atrial premature complex(es) no longer present Electronically Signed On 01-22-2019 15:07:31 CDT by Kyree Castaneda [email or web address] <ELECTRONICALLY SIGNED> By: Kyree Castaneda MD, [facility] 01/22/19 1507 0823 0823 Kyree Castaneda MD, [facility] /EPI
[2019-01-23] VITALS (26 sets, daily range): BP systolic 109–191; BP diastolic 45–100
--- NOTE | 2019-01-23 08:22 | TEE ---
[place] [address] TRANSESOPHAGEAL ECHOCARDIOGRAM Name: MARQUITA FUNES Room: [address] IN [facility]#: [id number] Admission: 01/19/19 Attend Phys: Alvarez Rose, Discharge: Date of : 34 Date of Service: 01/23/19 0822 Report #: [id number] THIS REPORT FOR: //name// APPROVED REPORT Study performed: 01/22/2019 15:05:48 EXAM: Transesophageal Echocardiogram Patient Location: In-Patient Room #: [facility] Status: routine BSA: 1.86 HR: 116 bpm BP: 168/110 mmHg Rhythm: Atrial Fibrillation Other Information Study Quality: Good Indications Atrial Fibrillation Echo Enhancing Agent Indication: Rule out Shunt Agent(s) / Amount(s) Used: Agitated Saline 20 cc Procedure After obtaining informed consent, patient underwent transesophageal echo in the [employer]. Type of Sedation : General Anesthesia Sedation was administered by Anesthesiologist. Sedation start time: 1505 Case end Time: 1526 Sedation was achieved intravenously with: Propofol (210) Transesophageal probe was inserted and advanced into esophagus without difficulty by Gabe Da Silva MD, FACC. Echo enhancement indication: R/O Septal defect. Echo enhancement agent administered: Agitated Saline The JACY was performed without complications. Synchronized Cardioversion attempted: Successful Synchronized Cardioversion acheived with 200 Joules after 1 attempt(s). Rhythm following Synchronized Cardioversion: Normal Sinus Rhythm Throughout the procedure, the blood pressure, pulse oximetry, cardiac rhythm, [place] [address] TRANSESOPHAGEAL ECHOCARDIOGRAM Name: MARQUITA FUNES Room: [address]#: [id number] Admission: 01/19/19 Attend Phys: Alvarez Rose, Discharge: Date of : 32 Date of Service: 01/23/19 0822 Report #: [id number] The patient tolerated the procedure without adverse effects. Recovery from conscious sedation was uneventful and vital signs were stable. Left Ventricle The left ventricle is normal size. There is normal LV segmental wall motion. There is normal left ventricular wall thickness. Left ventricular systolic function is normal. The left ventricular ejection fraction is within the normal range. LVEF is 50-55%. Right Ventricle The right ventricle is normal size. The right ventricular systolic function is normal. Atria Left atrium is moderately dilated. No thrombus is visualized in the left atrium or appendage. Interatrial septum is intact without evidence of ASD or PFO. The right atrium size is normal. Aortic Valve Mild aortic valve sclerosis. No aortic regurgitation is present. Mild aortic stenosis. Mitral Valve The mitral valve is normal in structure. Moderate mitral regurgitation. No evidence of mitral valve stenosis. Tricuspid Valve The tricuspid valve is normal in structure. Mild tricuspid regurgitation. Pulmonic Valve The pulmonary valve is normal in structure. There is no pulmonic valvular regurgitation. Great Vessels The aortic root is normal in size. Pericardium There is no pericardial effusion. <Conclusion> LVEF is 50-55%. Left atrium is moderately dilated. No thrombus is visualized in the left [place] [address] TRANSESOPHAGEAL ECHOCARDIOGRAM Name: MARINMARQUITA Echols Room: [address] IN ..#: [id number] Admission: 01/19/19 Attend Phys: Alvarez Rose, Discharge: Date of : 32 Date of Service: 01/23/19821 Report #: [id number] Interatrial septum is intact without evidence of ASD or PFO. Mild aortic stenosis. Moderate mitral regurgitation. successful cardioversion of atrial fibrillation to sinus rhythm <ELECTRONICALLY SIGNED> By: Gabe Da Silva MD, FACC 01/23/19821 1 1 Gabe Da Silva MD, FACC /INF
--- NOTE | 2019-01-23 10:21 | EKG ---
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: : 1930 Requested By: Gabe Da Silva Order Number: [id number] Reading MD: Scott Green Measurements Intervals [place] Rate: 88 P: 58 FL: 224 QRS: -20 QRSD: 115 T: 73 QT: 381 QTc: 461 Interpretive Statements Sinus rhythm Prolonged [place] interval Left atrial enlargement Left ventricular hypertrophy Compared to ECG 01/22/2019 08:23:02 First degree AV block now present Atrial abnormality now present Atrial flutter no longer present Electronically Signed On 01-23-2019 10:21:21 CDT by Scott Green [email or web address] <ELECTRONICALLY SIGNED> By: Scott Green MD, [facility] 01/23/19 1021 0038 0038 Scott Green MD, [facility] /EPI
--- NOTE | 2019-01-23 10:21 | EKG ---
[place] [address] ELECTROCARDIOGRAM REPORT Name: MARQUITA FUNES Room: [address] ADM IN M.R.#: [id number] Admission: 01/19/19 Attend Phys: Alvarez Rose MD Discharge: Date of : 34 Report #: [id number] THIS REPORT FOR: //name// [facility] Test Date: 2019-01-23 Test Time: 00:39:15 Pat Name: MARQUITA FUNES Department: Room: [address] Gender: F Battery Service Technician: MR : 1930 Requested By: Gabe Da Silva Order Number: [id number] Reading MD: Scott Green Measurements Intervals [place] Rate: 89 P: 62 NH: 228 QRS: -14 QRSD: 104 T: 69 QT: 377 QTc: 459 Interpretive Statements Sinus rhythm Prolonged [place] interval Probable left atrial enlargement Abnormal R-wave progression, late transition Compared to ECG 01/22/2019 08:23:02 First degree AV block now present Atrial flutter no longer present Electronically Signed On 01-23-2019 10:21:25 CDT by Scott Green [email or web address] <ELECTRONICALLY SIGNED> By: Scott Green MD, [facility] 01/23/19 1021 0039 0039 Scott Green MD, [facility] /EPI
[2019-01-23] MEDS ORDERED: PROPAFENONE 22225 M1 PO (12:07)
[2019-01-23] MEDS ORDERED: ELIQUIS5 MG PO (12:21)
--- NOTE | 2019-01-24 09:01 | CARD ---
[address] [address] CARDIAC CATH REPORT Name: MARQUITA FUNES Room: [address] IN M.R.#: [id number] Admission: 01/19/19 Attend Phys: Alvarez Rose MD Discharge: 01/23/19 Date of : 34 Report #: [id number] THIS REPORT FOR: //name// [facility] DATE OF SERVICE: 01/22/2019 TITLE OF PROCEDURE: Attempted placement of a permanent pacemaker from the left subclavian vein. DESCRIPTION OF PROCEDURE: The patient was brought to the cardiac catheterization lab in the fasting state after having received Ancef 2 g intravenously. The patient had a history of tachybrady syndrome and a permanent pacemaker was planned. The left subclavicular area was cleaned with ChloraPrep and sterilely draped in the usual fashion. The area was anesthetized with 1% lidocaine. The patient was given 10 mL of Omnipaque intravenously through the left brachial vein. Moderate sedation was accomplished by the anesthesiology attendant using propofol. Venogram appeared to show patency of the left subclavian vein. A micropuncture needle was used in an effort to enter the left subclavian vein. However, these attempts were unsuccessful. Blood was obtained, but insertion of the micropuncture wire into the vessel appeared to show the wire going into the descending aorta, suggesting the micropuncture needle had entered the left subclavian artery. The needle was redirected inferiorly, but again venous blood could not be obtained. Despite multiple attempts, the left subclavian vein could not be entered. The reason for failed attempts appear to be secondary to the patient's large size and short stature. The patient remained in sinus rhythm throughout the procedure. It was therefore decided to abandon further attempts placing the pacemaker. The patient left the cardiac catheterization lab in stable condition. IMPRESSION: Unsuccessful placement of a permanent pacemaker through the left subclavian vein. If the patient develops symptomatic bradycardia, a pacemaker could be attempted from the right subclavian vein. <ELECTRONICALLY SIGNED> By: Gabe Da Silva MD, FACC 01/24/19 0901 0826 [id number] Da Silva MD, FACC /nt
== END 2019-01-23 13:15 | disposition home or self-care (01) | DRG 65 ==
LOC: M.2W 03:55 → M.TBA-ER 03:56 → M.2W 03:59 → M.ICU 16:34
PROVIDERS: Internal Medicine; ADMIT Internal Medicine
PROC: B5171ZA Fluoroscopy of Left Subclavian Vein using Low Osmolar Contrast, Guidance (ICD-10-PCS; principal; 2019-01-22)
PROC: B24BZZ4 Ultrasonography of Heart with Aorta, Transesophageal (ICD-10-PCS; principal; 2019-01-22)
PROC: B24CZZ4 Ultrasonography of Pericardium, Transesophageal (ICD-10-PCS; principal; 2019-01-22)
PROC: 5A2204Z Restoration of Cardiac Rhythm, Single (ICD-10-PCS; principal; 2019-01-22)
DX: I63.9 Cerebral infarction, unspecified (principal); I13.0 Hypertensive heart and chronic kidney disease with heart failure and stage 1 through stage 4 chronic kidney disease, or unspecified chronic kidney disease; I50.22 Chronic systolic (congestive) heart failure; I48.91 Unspecified atrial fibrillation; N18.3 Chronic kidney disease, stage 3 (moderate); E11.22 Type 2 diabetes mellitus with diabetic chronic kidney disease; E03.9 Hypothyroidism, unspecified; E78.5 Hyperlipidemia, unspecified; K21.9 Gastro-esophageal reflux disease without esophagitis; G25.81 Restless legs syndrome; E78.00 Pure hypercholesterolemia, unspecified; F41.1 Generalized anxiety disorder; E66.9 Obesity, unspecified; I08.0 Rheumatic disorders of both mitral and aortic valves; R00.0 Tachycardia, unspecified; I49.5 Sick sinus syndrome; Z85.3 Personal history of malignant neoplasm of breast; Z90.49 Acquired absence of other specified parts of digestive tract; Z90.12 Acquired absence of left breast and nipple; Z79.84 Long term (current) use of oral hypoglycemic drugs; Z79.899 Other long term (current) drug therapy; Z91.041 Radiographic dye allergy status; Z91.018 Allergy to other foods; Z88.8 Allergy status to other drugs, medicaments and biological substances; Z79.82 Long term (current) use of aspirin; Z92.3 Personal history of irradiation; Z68.34 Body mass index [BMI] 34.0-34.9, adult; Z84.89 Family history of other specified conditions

== ENCOUNTER 2020-11-25 22:23 | Emergency (ER) | payer OTHER ==
[~2020-11-25] VITALS: Ht 157.5 cm; Wt 81.7 kg
[~2020-11-25 22:23] MED LIST changes: +METFORMIN HCL500 MG PO; +PROPAFENONE 22225 M1 PO
[2020-11-25] MEDS ORDERED: TRAMADOL 50 MG50 MG PO (22:37)
[2020-11-25 22:44] LABS: ABSOLUTE BASOPHILS 0.1 thou/uL (0.0-0.2); ABSOLUTE EOSINOPHILS 0.2 thou/uL (0.0-0.7); ABSOLUTE MONOCYTES 0.8 thou/uL (0.0-1.2); ABSOLUTE NEUTROPHILS 6.3 thou/uL (1.6-8.1); BASOPHILS 0.6 %; EOSINOPHILS 2.1 %; HEMATOCRIT 42.4 % (37.0-47.0); HEMOGLOBIN 13.8 gm/dL (12.0-15.0); LYMPHOCYTES 21.1 %; MCHC 32.6 g/dL (28.0-37.0); MONOCYTES 8.8 %; MPV 7.4 fl. (7.2-11.1); NUCLEATED RBCS 0 /100WBC; PLATELET COUNT* 273 thou/uL (150-400); POLYS 67.4 %; RBC 4.33 mil/uL (4.20-5.00); RDW-CV 14.1 % (10.5-14.5); WBC 9.3 thou/uL (4.0-11.0)
[2020-11-25 22:53] LABS: CALCIUM 9.1 mg/dL (8.5-10.1); CREATININE 1.1 mg/dL (0.6-1.3); POTASSIUM 3.7 mmol/L (3.5-5.1)
[2020-11-25 22:55] LABS: PROTIME 10.4 Seconds (9.20-11.50)
[2020-11-25 23:03] LABS: ALBUMIN 3.7 g/dL (3.4-5.0); MAGNESIUM 1.9 mg/dL (1.8-2.4); TOTAL BILIRUBIN 0.4 mg/dL (<0.1-1.0)
[2020-11-26 01:20] VITALS: BP 137/69
--- NOTE | 2020-11-26 12:46 | EKG ---
[place] [address] ELECTROCARDIOGRAM REPORT Name: MARINMARQUITA Kinza Room: [facility]#: [id number] Admission: 11/25/20 Attend Phys: Discharge: 11/26/20 Date of : 34 Date of Service: 11/25/202229 Report #: [id number] THIS REPORT FOR: //name// [facility] ED Test Date: 2020-11-25 Test Time: 22:30:05 Pat Name: MARQUITA FUNES Department: Room: Gender: Web Content Coordinator: MOE : 1930 Requested By: Caitlin Girer Order Number: [id number] MD: Gabe Da Silva Measurements Intervals [place] Rate: 118 P: [place]: QRS: -24 QRSD: 83 T: 11 QT: 342 QTc: 480 Interpretive Statements Atrial flutter Borderline left axis deviation Compared to ECG 01/23/2019 00:39:15 Sinus rhythm no longer present Electronically Signed On 11-26-2020 12:45:55 CDT by Gabe Da Silva [email or web address] <ELECTRONICALLY SIGNED> By: Gabe Da Silva MD, FACC 11/26/20 1245 29 29 Gabe Da Silva MD, [facility] /EPI
--- NOTE | 2020-11-26 12:46 | EKG ---
[place] [address] ELECTROCARDIOGRAM REPORT Name: MARINMARQUITA Kinza Room: [facility]#: [id number] Admission: 11/25/20 Attend Phys: Discharge: 11/26/20 Date of : 34 Date of Service: 11/26/20 0035 Report #: [id number] THIS REPORT FOR: //name// [facility] ED Test Date: 2020-11-26 Test Time: 00:35:46 Pat Name: MARQUITA FUNES Department: Room: Gender: Methods And Procedures Analyst: : 1930 Requested By: Caitlin Grier Order Number: [id number] Lea MD: Gabe Da Silva Measurements Intervals [place] Rate: 77 P: 50 CT: 194 QRS: -10 QRSD: 88 T: 21 QT: 385 QTc: 436 Interpretive Statements Sinus rhythm Compared to ECG 11/25/2020 22:30:05 Atrial flutter no longer present Electronically Signed On 11-26-2020 12:46:34 CDT by Gabe Da Silva [email or web address] <ELECTRONICALLY SIGNED> By: Gabe Da Silva MD, [facility] 11/26/20 1246 0035 0035 Gabe Da Silva MD, [facility] /EPI
== END 2020-11-26 01:22 | disposition home or self-care (01) ==
LOC: M.ERS 22:23
PROVIDERS: Emergency Medicine
DX: I48.20 Chronic atrial fibrillation, unspecified (principal); K21.9 Gastro-esophageal reflux disease without esophagitis; E66.9 Obesity, unspecified; I12.9 Hypertensive chronic kidney disease with stage 1 through stage 4 chronic kidney disease, or unspecified chronic kidney disease; N18.30 Chronic kidney disease, stage 3 unspecified; E78.00 Pure hypercholesterolemia, unspecified; Z88.3 Allergy status to other anti-infective agents; Z79.82 Long term (current) use of aspirin; Z79.899 Other long term (current) drug therapy; Z79.01 Long term (current) use of anticoagulants

== ENCOUNTER 2021-03-12 22:02 | Emergency (ER) | payer OTHER ==
[~2021-03-12] VITALS: Ht 157.5 cm; Wt 83.0 kg
[~2021-03-12 22:02] MED LIST changes: +TRAMADOL 50 MG50 MG PO
[2021-03-12] MEDS ORDERED: SORINE 80 MG TA80 MG PO (22:12)
[2021-03-13 00:49] VITALS: BP 132/77
== END 2021-03-13 00:50 | disposition home or self-care (01) ==
LOC: M.ERS 22:02
DX: S50.12XA Contusion of left forearm, initial encounter (principal); E78.00 Pure hypercholesterolemia, unspecified; K21.9 Gastro-esophageal reflux disease without esophagitis; E78.5 Hyperlipidemia, unspecified; G25.81 Restless legs syndrome; I48.91 Unspecified atrial fibrillation; E66.9 Obesity, unspecified; I13.0 Hypertensive heart and chronic kidney disease with heart failure and stage 1 through stage 4 chronic kidney disease, or unspecified chronic kidney disease; I50.20 Unspecified systolic (congestive) heart failure; N18.30 Chronic kidney disease, stage 3 unspecified; Z68.33 Body mass index [BMI] 33.0-33.9, adult; Z88.1 Allergy status to other antibiotic agents; Z79.899 Other long term (current) drug therapy; W01.0XXA Fall on same level from slipping, tripping and stumbling without subsequent striking against object, initial encounter; Y93.89 Activity, other specified; Y92.89 Other specified places as the place of occurrence of the external cause; Y99.8 Other external cause status

== ENCOUNTER 2021-08-18 22:45 | Inpatient (IN) | payer BC ==
[~2021-08-18] VITALS: Ht 157.5 cm; Wt 83.5 kg
[~2021-08-18 22:45] MED LIST changes: +SORINE 80 MG TA80 MG PO
[2021-08-18 23:00] VITALS: BP 102/64
[2021-08-18] MEDS ORDERED: NITROFURANTOIN (23:21)
[2021-08-18] MEDS ORDERED: LORATIDINE 10 M10 M1 (23:22)
[2021-08-18] MEDS ORDERED: ONE-DAILY MULT1 EAC1 (23:22)
[2021-08-18] MEDS ORDERED: NORCO5 (23:23)
[2021-08-18] MEDS ORDERED: BIOTIN (23:24)
[2021-08-18 23:30] LABS: ABSOLUTE LYMPHOCYTES 1.3 thou/uL (0.8-5.3); ABSOLUTE MONOCYTES 0.9 thou/uL (0.0-1.2); ABSOLUTE NEUTROPHILS 3.3 thou/uL (1.6-8.1); BASOPHILS 0.4 %; EOSINOPHILS 0.6 %; HEMATOCRIT 37.2 % (37.0-47.0); HEMOGLOBIN 12.3 gm/dL (12.0-15.0); LYMPHOCYTES 23.2 %; MCH 32.5 pg (26.0-34.0); MCV 98.5 fL (80.0-100.0); MONOCYTES 16.9 %; MPV 7.8 fl. (7.2-11.1); NUCLEATED RBCS 0 /100WBC; PLATELET COUNT* 197 thou/uL (150-400); POLYS 58.9 %; RBC 3.78 mil/uL (4.20-5.00); RDW-CV 14.3 % (10.5-14.5); WBC 5.6 thou/uL (4.0-11.0)
[2021-08-18 23:33] LABS: CALCIUM 8.1 mg/dL (8.5-10.1); CREATININE 1.6 mg/dL (0.6-1.3); POTASSIUM 4.2 mmol/L (3.5-5.1)
[2021-08-18 23:48] LABS: ALBUMIN 3.1 g/dL (3.4-5.0); MAGNESIUM 1.9 mg/dL (1.8-2.4); TOTAL BILIRUBIN 0.3 mg/dL (<0.1-1.0); TOTAL PROTEIN 6.6 g/dL (6.4-8.2)
[2021-08-19 02:58] LABS: URINE BILIRUBIN NEGATIVE (Negative); URINE BLOOD TRACE (Negative); URINE CLARITY CLEAR; URINE COLOR YELLOW; URINE GLUCOSE-RANDOM NEGATIVE (Negative); URINE KETONES NEGATIVE (Negative); URINE LEUKOCYTES-REFLEX NEGATIVE (Negative); URINE NITRITE-REFLEX NEGATIVE (Negative); URINE PROTEIN NEGATIVE (Negative); URINE UROBILINOGEN 0.2 E.U./dl (0.2-1.0)
[2021-08-19 05:00] VITALS: BP 103/49
[2021-08-19 08:00] VITALS: BP 100/61
[2021-08-19 08:12] LABS: ABSOLUTE LYMPHOCYTES 1.4 thou/uL (0.8-5.3); ABSOLUTE MONOCYTES 0.8 thou/uL (0.0-1.2); ABSOLUTE NEUTROPHILS 2.4 thou/uL (1.6-8.1); BASOPHILS 0.3 %; EOSINOPHILS 0.3 %; HEMATOCRIT 37.7 % (37.0-47.0); HEMOGLOBIN 12.4 gm/dL (12.0-15.0); LYMPHOCYTES 30.4 %; MCH 32.5 pg (26.0-34.0); MCHC 32.9 g/dL (28.0-37.0); MCV 98.8 fL (80.0-100.0); MONOCYTES 17.5 %; MPV 7.3 fl. (7.2-11.1); NUCLEATED RBCS 0 /100WBC; PLATELET COUNT* 191 thou/uL (150-400); POLYS 51.5 %; RBC 3.82 mil/uL (4.20-5.00); RDW-CV 14.4 % (10.5-14.5); WBC 4.6 thou/uL (4.0-11.0)
[2021-08-19 08:45] LABS: CALCIUM 8.1 mg/dL (8.5-10.1); CREATININE 1.4 mg/dL (0.6-1.3); POTASSIUM 4.1 mmol/L (3.5-5.1)
[2021-08-19 12:00] VITALS: BP 100/55
--- NOTE | 2021-08-19 15:05 | 2DMMODE ---
[place] [address] 2 D/M-MODE ECHOCARDIOGRAM Name: MARQUITA FUNES Room: [address] [place]#: [id number] Admission: 08/19/21 Attend Phys: Jaden Gramajo Discharge: Date of : 34 Date of Service: 08/19/21 1504 Report #: [id number] THIS REPORT FOR: cc: Susan Dinh MD, Nasar O. MD Blick, David R. MD [facility] ~ APPROVED REPORT Study performed: 08/19/2021 14:13:43 EXAM: Comprehensive 2D, Doppler, and color-flow Echocardiogram Patient Location: In-Patient Room #: 104 Status: routine BSA: 1.31 HR: 104 bpm BP: 103/49 mmHg Rhythm: Atrial Fibrillation Other Information Study Quality: Good Indications Atrial Fibrillation Syncope 2D Dimensions IVSd: 11.37 (7-11mm) LVOT Diam: 19.60 (18-24mm) LVDd: 35.06 mm PWd: 10.29 (7-11mm) Ascending Ao: 29.60 (22-36mm) LVDs: 22.69 (25-40mm) Aortic Root: 29.54 mm Volumes Left Atrial Volume (Systole) LA ESV Index: 41.40 mL/m2 Aortic Valve AoV Peak Jaime.: 2.07 m/s AO Peak Gr.: 17.17 mmHg LVOT Max P.71 mmHg AO Mean Gr.: 10.75 mmHg LVOT Mean P.29 mmHg LVOT Max V: 1.09 m/s AO V2 VTI: 33.99 cm LVOT Mean V: 0.70 m/s JARRET (VTI): 1.20 cm2 LVOT V1 VTI: 13.53 [place] [address] 2 D/M-MODE ECHOCARDIOGRAM Name: MARQUITA FUNES [address]#: [id number] Admission: 08/19/21 Attend Phys: Jaden Gramajo Discharge: Date of : 34 Date of Service: 08/19/21 1504 Report #: [id number] Pulmonary Valve PV Peak Jaime.: 1.07 m/s PV Peak Gr.: 4.57 mmHg Tricuspid Valve RAP Estimate: 5.00 mmHg TR Peak Gr.: 28.48 mmHg RVSP: 33.00 mmHg PA Pressure: 33.00 mmHg Left Ventricle The left ventricle is normal size. There is normal LV segmental wall motion. There is normal left ventricular wall thickness. Left ventricular systolic function is normal. The left ventricular ejection fraction is within the normal range. LVEF is 55-60%. This study is not technically sufficient to allow evaluation of the LV diastolic function due to atrial fibrillation. Right Ventricle The right ventricle is normal size. The right ventricular systolic function is normal. Atria Left atrium is mildly dilated. The right atrium size is normal. Aortic Valve Aortic valve is calcified. No aortic regurgitation is present. Mild aortic stenosis. Mitral Valve There is mitral annular calcification. The mitral valve is normal in structure. Mild mitral regurgitation. No evidence of mitral valve stenosis. Tricuspid Valve The tricuspid valve is normal in structure. Mild tricuspid regurgitation. estimated pa pressure 40 mm Hg Pulmonic Valve The pulmonary valve is normal in structure. There is no pulmonic valvular regurgitation. Great Vessels The aortic root is normal in size. IVC is normal in size and collapses >50% [place] [address] 2 D/M-MODE ECHOCARDIOGRAM Name: MARQUITA FUNES Kinza Room: [address] [place]#: [id number] Admission: 08/19/21 Attend Phys: Jaden Gramajo Discharge: Date of : 34 Date of Service: 08/19/21 1504 Report #: [id number] Pericardium There is no pericardial effusion. <Conclusion> LVEF is 55-60%. Left atrium is mildly dilated. Mild aortic stenosis. Mild mitral regurgitation. Mild tricuspid regurgitation. estimated pa pressure 40 mm Hg <ELECTRONICALLY SIGNED> By: Gabe Da Silva MD, FACC 08/19/21 1504 1504 1504 Gabe Da Silva MD, FAC /INF
--- NOTE | 2021-08-19 17:07 | EKG ---
[place] [address] ELECTROCARDIOGRAM REPORT Name: MARINMARQUITA Kinza Room: [address]R.#: [id number] Admission: 08/19/21 Attend Phys: Jaden Gramajo Discharge: Date of : 34 Date of Service: 08/18/212252 Report #: [id number] THIS REPORT FOR: //name// [facility] ED Test Date: 2021-08-18 Test Time: 22:53:46 Pat Name: MARQUITA FUNES Department: Room: [address] Gender: F Financial Reporting Consultant: : 1930 Requested By: Jaden Gramajo Order Number: [id number] Lea MD: Gabe Da Silva Measurements Intervals [place] Rate: 113 P: [place]: QRS: -13 QRSD: 84 T: 34 QT: 346 QTc: 475 Interpretive Statements Atrial fibrillation Compared to ECG 11/26/2020 00:35:46 Sinus rhythm no longer present Electronically Signed On 08-19-2021 17:07:20 BREAD WRAPPER by Gabe Da Silva [email or web address] <ELECTRONICALLY SIGNED> By: Gabe Da Silva MD, [facility] 08/19/21 1707 2253 2253 Gabe Da Silva MD, [facility] /EPI
--- NOTE | 2021-08-19 18:08 | NUR ---
CM ASSESSMENT ASSESSMENT COMPLETED WITH PT DAUGHTER (LIV PERDOMO - [phone]). PT AND LIVE WITH MS. PERDOMO. PT IND WITH ADLS. PT USES A WALKER. PT HAS NO HX OF SNF, ARU, OR HH. PT MAY DC TOMORROW WITH HH. PT PENDING ACCEPTANCE WITH [facility]. PT NEEDING WHEELCHAIR AT DC AND REFERRAL SUBMITTED TO [facility] ([phone]). CM TO FOLLOW.
[2021-08-19 19:41] VITALS: BP 93/48
[2021-08-19 20:00] VITALS: BP 97/49
--- NOTE | 2021-08-19 21:06 | NUR ---
I ASSUMED CARE OF THE PATIENT AT 0700. SHE IS ALERT AND ORIENTED X4 AND IS UP WITH ASSIST OF ONE AND A WALKER. BED IS IN THE LOW LOCKED POSITION. CALL LIGHT IS IN REACH. PATIENT NEEDS ARE MET DURING HOURLY ROUNDING AND PAIN IS DENIED. FAMILY IS UPDATED AND SHE SHOULD DISCHARGE TOMORROW. ISOLATION IS MAINTAINED. SHE HAS A LEFT LIMB ALERT IN PLACE FROM HX OF BREAST CANCER. SHE IS MAINTAINING OXYGEN OF 92% ON ROOM AIR. I CONTACTED CASE MANAGEMENT IN REGARDS TO A WHEELCHAIR UPON DISCHARGE. SHE IS TACHY THROUGHOUT THE DAY AND MEDS WERE ADJUSTED BY CARDIOLOGY. SHE HAD A BM TODAY AND WEARS A BRIEF. WILL CONTINUE TO MONITOR. REPORT GIVEN TO BRIEN JONES.
[2021-08-20] VITALS: BP 91/51
[2021-08-20 03:56] LABS: ABSOLUTE EOSINOPHILS 0.1 thou/uL (0.0-0.7); ABSOLUTE LYMPHOCYTES 1.5 thou/uL (0.8-5.3); ABSOLUTE MONOCYTES 0.5 thou/uL (0.0-1.2); ABSOLUTE NEUTROPHILS 1.6 thou/uL (1.6-8.1); BASOPHILS 0.4 %; EOSINOPHILS 1.6 %; HEMATOCRIT 42.8 % (37.0-47.0); LYMPHOCYTES 40.8 %; MCH 32.4 pg (26.0-34.0); MCHC 32.6 g/dL (28.0-37.0); MCV 99.4 fL (80.0-100.0); MONOCYTES 14.1 %; MPV 7.6 fl. (7.2-11.1); NUCLEATED RBCS 0 /100WBC; PLATELET COUNT* 209 thou/uL (150-400); POLYS 43.1 %; RBC 4.31 mil/uL (4.20-5.00); RDW-CV 14.4 % (10.5-14.5); WBC 3.7 thou/uL (4.0-11.0)
[2021-08-20 04:00] VITALS: BP 92/50
[2021-08-20 04:10] LABS: CALCIUM 8.4 mg/dL (8.5-10.1); CREATININE 1.4 mg/dL (0.6-1.3); POTASSIUM 4.1 mmol/L (3.5-5.1)
[2021-08-20 11:45] VITALS: BP 120/93
--- NOTE | 2021-08-20 14:38 | CON ---
[address] [address] CONSULTATION Name: MARQUITA FUNES Room: [address] IN M.R.#: [id number] Admission: 08/19/21 Attend Phys: Macho Kennedy Discharge: Date of : 34 Report #: [id number] THIS REPORT FOR: cc: Susan Dinh MD, Nasar O. MD Blick, David R. MD [facility] ~ cc: Mona Dinh MD DATE OF CONSULTATION: 08/19/2021 CARDIOLOGY CONSULTATION HISTORY OF PRESENT ILLNESS: The patient is an 89-year-old white female who I was asked to see in the hospital today after she is noted to be in atrial fibrillation. The patient presented to [place] in 2019 and was found to be in atrial fibrillation. She was seen by Dr. Spence and was placed on sotalol and Eliquis. She developed pauses lasting 6 seconds. She underwent JACY and was cardioverted and placed on Rythmol. I attempted placement of a permanent pacemaker from the left subclavian vein, but was unable to cannulate the vein. Therefore, the procedure was abandoned. Fortunately, after she was taken off the sotalol, she had no more pauses. She actually returned to see the nurse practitioner several weeks later in the office. She had no complaints. The ECG showed atrial fibrillation with rapid ventricular response rate. She was asymptomatic. It was decided to aim for rate control rather than repeat cardioversion. She was continued on Eliquis. She has not been seen in Cardiology Clinic since that time. Apparently, the patient has been feeling well recently. She denied any complaints of fever, cough, shortness of breath. Apparently, last night, the patient was sitting on the toilet. When the daughter went to check on her, apparently, the patient was unresponsive. She did not fall to the ground. She did claim her legs were weak. However, she denied any recent vomiting, diarrhea or bleeding. She was brought here to [facility] and admitted for further evaluation and treatment. PAST MEDICAL HISTORY: Significant for breast cancer. She has had previous left mastectomy, lymph node resection and radiation therapy. She has had a previous appendectomy. She has a history of hypertension. 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 She has macular degeneration. She is legally blind. She has restless legs syndrome. CURRENT MEDICATIONS: Include Eliquis, Synthroid, lovastatin, metformin, Requip for restless leg syndrome. ALLERGIES: SHE HAS PREVIOUS INTOLERANCE TO DOXYCYCLINE. FAMILY HISTORY[place] [address] CONSULTATION Name: KARLA FUNESALEKSANDR Echols Room: [address] IN M.R.#: [id number] Admission: 08/19/21 Attend Phys: Macho Kennedy Discharge: Date of : 34 Report #: [id number] SOCIAL HISTORY: She is . She and her live in [place]. No smoking or alcohol use. REVIEW OF SYSTEMS: She is overweight being 5 feet 2 inches, 186 pounds. PHYSICAL EXAMINATION: VITAL SIGNS: She had a blood pressure of 110/60, pulse is 100. She is afebrile. HEENT: She was anicteric. Conjunctivae were pink. Mucosa moist. NECK: Veins do not appear distended. CHEST: Clear to auscultation. HEART: Irregular, tachycardia. No significant murmur. ABDOMEN: Obese. EXTREMITIES: Had no pitting edema. SKIN: Cool and dry. NEUROLOGIC: Nonfocal. DIAGNOSTIC DATA: Her ECG on admission last night showed atrial fibrillation with an increased ventricular response rate, but no significant ST or T-wave changes. Her workup, she actually had an echocardiogram performed back in 2019 by the transesophageal approach that showed ejection fraction of 55%. No thrombus. Left atrial enlargement. No evidence of shunt. Mild aortic stenosis, moderate mitral regurgitation. She actually had a previous nuclear stress test in 2018 when she presented with atrial fibrillation that showed ejection fraction 65% with normal perfusion. No evidence of ischemia. Her x-rays last night in the Emergency Room included a chest x-ray that showed normal heart size and clear lung faye. She had a CT scan of the head that was pending. Her lab work, potassium 4.1, creatinine 1.4. Her liver function studies were normal. Albumin 3.1. High sensitivity troponin 27. BNP 3279. Her hemoglobin 12.4. Her COVID antigen stat test was positive. IMPRESSION AND RECOMMENDATIONS: 1. Mild aortic stenosis. 2. Persistent atrial fibrillation. Aim for rate control. 3. Sick sinus syndrome. Previous pauses over 6 seconds. 4. Hyperlipidemia. The patient is on a statin drug. 5. Diabetes. 6. Restless leg syndrome. 7. Macular degeneration. [place] [address] CONSULTATION Name: MARQUITA FUNES Room: [address] IN M.R.#: [id number] Admission: 08/19/21 Attend Phys: Macho Kennedy Discharge: Date of : 34 Report #: [id number] 8. Carrier of hepatitis B. 9. COVID-19. <ELECTRONICALLY SIGNED> By: Gabe Da Silva MD, FACC 08/20/21 1438 1254 2038Dahenrietta Da Silva MD, FACC /nt
--- NOTE | 2021-08-20 15:06 | NUR ---
CM FOLLOWUP PT NOT MED CLEAR DUE TO AFIB AND COVID+ STATUS. UPON CLEARANCE, PT TO DC HOME WITH HH PROVIDED BY [facility] ([phone]). CM TO FOLLOW.
[2021-08-20 16:00] VITALS: BP 181/61
[2021-08-20 20:00] VITALS: BP 99/60
--- NOTE | 2021-08-20 20:18 | NUR ---
I ASSUMED CARE OF THE PATIENT AT 0700. SHE IS ALERT AND ORIENTED X4 AND IS UP WITH ASSIST OF 1 AND A WALKER. PATIENT NEEDS ARE MET DURING HOURLY ROUNDING. PAIN IS DENIED. BED IS IN THE LOW LOCKED POSITION AND CALL LIGHT IS IN REACH. ISOLATION IS MAINTAINED. SHE HAD A SHOWER AND WORKED WITH THERAPY TODAY. IS IN 116 AND THEY HAD A VISIT TOGETHER IN THE EVENING AFTER DINNER. CARDIAC MEDS HAVE BEEN ADJUSTED. WILL CONTINUE TO MONITOR.
[2021-08-20 23:58] VITALS: BP 116/74
[2021-08-21 04:00] VITALS: BP 124/81
--- NOTE | 2021-08-21 05:45 | NUR ---
ASSUMED PT CARE AT APPROX 1930. PT IS AWAKE AND ORIENTED X4. PT IS NOT IN DISTRESS, NO DESATURATIONS NOTED ON ROOM AIR. PT IS TRACING AFIB ON THE MONITOR, RATE IS CONTROLLED. PT HAS RESTLESS LEGS, AND LEG PAIN, PARTIALLY RELEIVED BY TRAMADOL GIVEN PER MAR. NO ACUTE CHANGES THIS SHIFT. CALL LIGHT WITHIN REACH. HOURLY ROUNDING DONE FOR PT SAFETY. HIGH FALL PRECAUTIONS IN PLACE. TM
[2021-08-21 07:41] VITALS: BP 130/71
--- NOTE | 2021-08-21 10:02 | EKG ---
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
[2021-08-21 12:00] VITALS: BP 108/66
[2021-08-21 15:28] VITALS: BP 130/71
--- NOTE | 2021-08-21 17:04 | NUR ---
CM FOLLOWUP PT DC HOME WITH [facility] ([phone]).
[2021-08-21 17:05] VITALS: BP 130/71
[2021-08-21 18:47] VITALS: BP 130/71
== END 2021-08-21 16:35 | disposition home health service (06) | DRG 308 ==
LOC: M.ERS 22:45 → M.ORTHSURG 08-19 03:19 → M.TBA-ER 08-19 03:19 → M.ORTHSURG 08-19 05:18
PROVIDERS: Internal Medicine; Personal Emergency Response Attendant; ADMIT Internal Medicine; ATTEND Internal Medicine
DX: I48.11 Longstanding persistent atrial fibrillation (principal); U07.1 COVID-19; N17.9 Acute kidney failure, unspecified; I13.0 Hypertensive heart and chronic kidney disease with heart failure and stage 1 through stage 4 chronic kidney disease, or unspecified chronic kidney disease; I50.22 Chronic systolic (congestive) heart failure; E86.0 Dehydration; K21.9 Gastro-esophageal reflux disease without esophagitis; K44.9 Diaphragmatic hernia without obstruction or gangrene; E78.5 Hyperlipidemia, unspecified; E11.22 Type 2 diabetes mellitus with diabetic chronic kidney disease; G25.81 Restless legs syndrome; E78.00 Pure hypercholesterolemia, unspecified; H35.30 Unspecified macular degeneration; I49.5 Sick sinus syndrome; H54.8 Legal blindness, as defined in USA; E66.9 Obesity, unspecified; I35.0 Nonrheumatic aortic (valve) stenosis; N18.30 Chronic kidney disease, stage 3 unspecified; F41.1 Generalized anxiety disorder; Z23 Encounter for immunization; Z90.49 Acquired absence of other specified parts of digestive tract; Z79.899 Other long term (current) drug therapy; Z68.33 Body mass index [BMI] 33.0-33.9, adult; Z90.12 Acquired absence of left breast and nipple; Z85.3 Personal history of malignant neoplasm of breast; Z92.3 Personal history of irradiation; Z79.01 Long term (current) use of anticoagulants; Z79.84 Long term (current) use of oral hypoglycemic drugs; Z88.1 Allergy status to other antibiotic agents